=== PATIENT | female | born 1975 | race Caucasian/White ===

== ENCOUNTER → 2020-04-05 | Outpatient (CLI) | payer MEDICAID ==
[~2020-04-05] MED LIST: ACET-1600 PO; ACET325T14 PO; ALBU90AE INH; ALPR-585 PO; BUPR150T7 PO; BUPROPION PO; BUSP10TA PO; BUSP15TA PO; BUTA1CAP30 PO; CALCIUM PO; CYCL5TAB PO; DIPH25CA61 PO; DULO30CA2 PO; ESCI10TA10 PO; FERR324T5 PO; FERR325T18 PO; FLUO60TA PO; GABA100C PO; GABA300C PO; GABA300C10 PO; GABA600T PO; GABA600T7 PO; HYDR-3248 PO; HYDR1TAB16 PO; HYDR50TA99 PO; IBUP-1222; IBUP-1222 PO; MELO15TA24 PO; MELO7.5T31 PO; METH-639 PO; MONT10TA17 PO; MULTIVITAMIN PO; OMEP-110 PO; ONDA4TAB10 PO; ONDA4TAB7 PO; ONDA8TAB9 PO; PANT20TA4 PO; PROP10TA16 PO; SERT100T PO; TOPI50TA35 PO; TRAM50TA2 PO; VENL37.52 PO; breo ellipta INH; cbd gummy PO; ropinirole PO
[2020-04-05 11:41] LABS: BASOPHILS % (AUTO) 0 % (0-1); EOSINOPHILS % (AUTO) 1 % (1-7); LYMPHOCYTES % (AUTO) 32 % (22-44); MEAN CORPUSCULAR HEMOGLOBIN 26.2 pg (27.0-34.8); MEAN CORPUSCULAR HGB CONC 31.8 g/dL (32.4-35.8); MEAN PLATELET VOLUME 8.2 fL (7.4-10.4); MONOCYTES % (AUTO) 7 % (2-9); NEUTROPHILS % (AUTO) 59 % (42-75); PLATELET COUNT 322 x10^3/uL (130-400); RED BLOOD COUNT 4.81 x10^6/uL (3.82-5.3); RED CELL DISTRIBUTION WIDTH 15.9 % (9.6-15.2)
[2020-04-05 11:49] LABS: MD NO
[2020-04-05 11:55] LABS: MICROSCOPIC AUTO
== END | disposition home or self-care (01) ==
LOC: MERGE 10:30 → STAR 12:00
PROVIDERS: ATTEND Obstetrics & Gynecology Female Pelvic Medicine and Reconstructive Surgery
DX: Z01.812 Encounter for preprocedural laboratory examination (principal); R10.2 Pelvic and perineal pain; N81.10 Cystocele, unspecified; N81.6 Rectocele; N39.3 Stress incontinence (female) (male); Z20.822 Contact with and (suspected) exposure to COVID-19
CPT/HCPCS: 81001; 85025; 87086; 87635

== ENCOUNTER 2020-04-07 15:24 | Outpatient (CLI) | payer MEDICAID ==
[2020-04-07 15:53] LABS: MICROSCOPIC NOT IND
== END 2020-04-07 23:59 | disposition home or self-care (01) ==
LOC: STAR 15:24
PROVIDERS: ATTEND Obstetrics & Gynecology Female Pelvic Medicine and Reconstructive Surgery
DX: Z01.818 Encounter for other preprocedural examination (principal); R10.2 Pelvic and perineal pain; N39.3 Stress incontinence (female) (male); N81.10 Cystocele, unspecified; N81.6 Rectocele
CPT/HCPCS: 81003

== ENCOUNTER 2020-04-11 06:37 | Day surgery (SDC) | payer MEDICAID ==
[~2020-04-11] VITALS: Ht 167.6 cm; Wt 140.0 kg
[2020-04-11] MEDS ORDERED: BUPIVACAINE/PF 0.25% ONE (06:49)
[2020-04-11] MEDS ORDERED: EPINEPHRINE 1 MG/ML, 1ML ONE (06:49)
[2020-04-11] MEDS ORDERED: NEOMY/POLYMYXIN B GU IRR. 1 ML ONE (06:49)
[2020-04-11] MEDS ORDERED: CHLORHEXIDINE 15 ML UDC MM STA (06:51)
[2020-04-11] MEDS ORDERED: LACTATED RINGERS 1,000 ML IV SCH (07:00)
[2020-04-11 07:06] VITALS: BP 131/88
[2020-04-11] MEDS ORDERED: FENTANYL PF 250 MCG/5ML ONE (08:04)
[2020-04-11] MEDS ORDERED: MIDAZOLAM 1 MG/ML, 2ML ONE (08:04)
[2020-04-11] MEDS ORDERED: CEFAZOLIN 1,000 MG ONE (08:57)
[2020-04-11] MEDS ORDERED: DEXAMETHASONE 4 MG/ML, 5ML ONE (08:57)
[2020-04-11] MEDS ORDERED: SUCCINYLCHOLINE 20 MG/ML, 10ML ONE (08:57)
[2020-04-11] MEDS ORDERED: ONDANSETRON 2MG/ML, 2ML ONE (08:57)
[2020-04-11] MEDS ORDERED: NEOSTIGMINE 1 MG/ML, 10ML ONE (08:57)
[2020-04-11] MEDS ORDERED: GLYCOPYRROLATE 0.2MG/1ML, 5ML ONE (08:57)
[2020-04-11] MEDS ORDERED: PROPOFOL 10 MG/ML, 20ML ONE (08:57)
[2020-04-11] MEDS ORDERED: LIDOCAINE-MPF 1%, 2ML ONE (08:57)
[2020-04-11] MEDS ORDERED: ROCURONIUM 10MG/ML,5ML ONE (08:57)
[2020-04-11] MEDS ORDERED: ACETAMINOPHEN 325 MG TABLET PO PRN (09:30)
[2020-04-11] MEDS ORDERED: LABETALOL 5MG/ML, 20ML IV PRN (09:30)
[2020-04-11] MEDS ORDERED: DIPHENHYDRAMINE 50 MG/ML, 1ML IVPush PRN (09:30)
[2020-04-11] MEDS ORDERED: KETOROLAC 30 MG/1 ML IVPush PRN (09:30)
[2020-04-11] MEDS ORDERED: METOPROLOL 1 MG/ML, 5ML IV PRN (09:30)
[2020-04-11] MEDS ORDERED: METOCLOPRAMIDE 5 MG/ML, 2ML IVPush PRN (09:30)
[2020-04-11] MEDS ORDERED: EPHEDRINE 50 MG/ML, 1ML IVPush PRN (09:30)
[2020-04-11] MEDS ORDERED: LORazepam 2 MG/ML, 1ML IVPush PRN (09:30)
[2020-04-11] MEDS ORDERED: HALOPERIDOL 5 MG/ML IV PRN (09:30)
[2020-04-11] MEDS ORDERED: OXYcodone 5 MG/5 ML ORAL.SOL UDC PO PRN (09:30)
[2020-04-11] MEDS ORDERED: ONDANSETRON 2MG/ML, 2ML IVPush PRN (09:30)
[2020-04-11] MEDS ORDERED: hydrALAzine 20 MG/ML, 1ML IV PRN (09:30)
[2020-04-11] MEDS ORDERED: HYDROmorphone 1 MG/ML, 1ML INJ IVPush PRN (09:30)
[2020-04-11] MEDS ORDERED: FENTANYL PF 100 MCG/2ML ONE ×2 (10:05→10:33)
[2020-04-11] MEDS: FENTANYL PF 100 MCG/2ML IV PRN ×4 (10:07→10:49)
[2020-04-11] MEDS ORDERED: KETOROLAC 30 MG/1 ML ONE (10:13)
[2020-04-11] MEDS ORDERED: ACETAMINOPHEN 650 MG/20.3 ML UDC ONE (10:13)
[2020-04-11] MEDS ORDERED: OXYcodone 5 MG/5 ML ORAL.SOL UDC ONE (10:14)
[2020-04-11] MEDS ORDERED: METOCLOPRAMIDE 5 MG/ML, 2ML ONE (10:39)
== END 2020-04-11 13:05 | disposition home or self-care (01) ==
LOC: OUT 06:37 → MERGE 08:30 → OUT 13:05
PROVIDERS: ATTEND Obstetrics & Gynecology Female Pelvic Medicine and Reconstructive Surgery
DX: N81.89 Other female genital prolapse (principal); N39.3 Stress incontinence (female) (male); N81.11 Cystocele, midline; N81.5 Vaginal enterocele; N81.6 Rectocele; G43.909 Migraine, unspecified, not intractable, without status migrainosus; D64.9 Anemia, unspecified; G47.33 Obstructive sleep apnea (adult) (pediatric); J45.909 Unspecified asthma, uncomplicated; F41.9 Anxiety disorder, unspecified; F32.9 Major depressive disorder, single episode, unspecified; E66.01 Morbid (severe) obesity due to excess calories; G25.81 Restless legs syndrome; Z79.1 Long term (current) use of non-steroidal anti-inflammatories (NSAID); Z79.899 Other long term (current) drug therapy; Z88.8 Allergy status to other drugs, medicaments and biological substances; Z90.49 Acquired absence of other specified parts of digestive tract; Z90.710 Acquired absence of both cervix and uterus; Z98.890 Other specified postprocedural states
CPT/HCPCS: 57265; 57282; 57288; C1771; J0171; J1885; J2250; J2405; J2765; J3010; J7120; J0690; J1100; J2704; J2710; J0330

== ENCOUNTER 2020-05-11 06:26 | Day surgery (SDC) | payer MEDICAID ==
[~2020-05-11] VITALS: Ht 167.6 cm; Wt 139.7 kg
[~2020-05-11 06:26] MED LIST changes: +BUPR150T22 PO; -BUPR150T7 PO
[2020-05-11 07:14] VITALS: BP 133/89
[2020-05-11] MEDS ORDERED: CHLORHEXIDINE 15 ML UDC MM ONE (07:30)
[2020-05-11] MEDS ORDERED: LACTATED RINGERS 1,000 ML IV SCH (08:00)
[2020-05-11] MEDS ORDERED: PROPOFOL 50 ML ONE (08:02)
[2020-05-11] MEDS ORDERED: ONDANSETRON 2MG/ML, 2ML IVPush PRN (08:30)
[2020-05-11] MEDS ORDERED: hydrALAzine 20 MG/ML, 1ML IV PRN (08:30)
[2020-05-11] MEDS ORDERED: ACETAMINOPHEN 325 MG TABLET PO PRN (08:30)
[2020-05-11] MEDS ORDERED: LABETALOL 5MG/ML, 20ML IV PRN (08:30)
[2020-05-11] MEDS ORDERED: FENTANYL PF 100 MCG/2ML IV PRN (08:30)
[2020-05-11] MEDS ORDERED: OXYcodone 5 MG/5 ML ORAL.SOL UDC PO PRN (08:30)
[2020-05-11] MEDS ORDERED: ALBUTEROL SULFATE 2.5 MG/3 ML NPPB PRN (08:30)
[2020-05-11] MEDS ORDERED: KETOROLAC 30 MG/1 ML IVPush PRN (08:30)
[2020-05-11] MEDS ORDERED: ONDANSETRON 2MG/ML, 2ML ONE (09:19)
== END 2020-05-11 10:40 | disposition home or self-care (01) ==
LOC: OUT 06:26
PROVIDERS: ATTEND Internal Medicine Gastroenterology
DX: D64.9 Anemia, unspecified (principal); K64.2 Third degree hemorrhoids; K21.9 Gastro-esophageal reflux disease without esophagitis; G43.909 Migraine, unspecified, not intractable, without status migrainosus; F32.9 Major depressive disorder, single episode, unspecified; J45.909 Unspecified asthma, uncomplicated; E66.01 Morbid (severe) obesity due to excess calories; Z20.822 Contact with and (suspected) exposure to COVID-19; Z79.899 Other long term (current) drug therapy; Z88.8 Allergy status to other drugs, medicaments and biological substances
CPT/HCPCS: 45378; 87635; J2405; J2704; J7120